=== PATIENT | male | born 1955 | race African-American/Black ===

== ENCOUNTER 2020-10-23 14:10 | Outpatient (CLI) | payer OTHER | END 2020-10-23 14:11 | disposition home or self-care (01) | LOC: BICCT 14:10 | DX: Z12.2 Encounter for screening for malignant neoplasm of respiratory organs (principal); J98.11 Atelectasis; I70.0 Atherosclerosis of aorta; I70.90 Unspecified atherosclerosis; J98.4 Other disorders of lung; Z87.891 Personal history of nicotine dependence | CPT/HCPCS: 71271 ==